=== PATIENT | male | born 1990 | race Two or more races ===

== ENCOUNTER 2020-03-13 17:16 | Inpatient (IN) | payer OTHER ==
[~2020-03-13] VITALS: Ht 165.1 cm; Wt 63.2 kg
[~2020-03-13 17:16] MED LIST: INSU100V14 SQ; INSU100V8 SQ
--- NOTE | 2020-03-13 17:31 | NUR ---
IV PLACED, PT IN GOWN, BP AND SPO2 IN PLACE. PT AOX4. PT BELIEVES HE IS IN DKA, LAST TIME WAS 4-5 YEARS AGO. CONTROLLED ON INSULIN PUMP WITH SUPPLEMENTAL. REPORTS ETOH LAST NOC. HOB TO LEVEL OF COMFORT. AWAITING ORDERS.
[2020-03-13] MEDS ORDERED: ONDANSETRON 2MG/ML, 2ML ONE (17:52)
--- NOTE | 2020-03-13 17:55 | NUR ---
TASK RN: LABS COLLECTED, FLUIDS RUNNING, PT MEDICATED FOR VOMITING WITH ZOFRAN PER DEC. PT PLACED ON ALL MONITORING, TACHY HR, RAPID BREATHING, OTHER VS WNL. CALL LIGHT WITHIN REACH. PT AWARE OF NEED FOR UA, URINAL AT BEDSIDE. PT REQUESTING WATER. THIS RN EXPLAINED TO PT THAT WE NEED TO WAIT UNTIL MEDS TAKE AFFECT AND VOMITING SUBSIDES.
[2020-03-13 17:59] LABS: MEAN CORPUSCULAR HEMOGLOBIN 29.2 pg (27.5-34.5); MEAN CORPUSCULAR HGB CONC 32.7 g/dL (33.2-36.2); MEAN CORPUSCULAR VOLUME 89.5 fL (81-97); PLATELET COUNT 608 x10^3/uL (130-400); RED BLOOD COUNT 5.67 x10^6/uL (4.38-5.82); RED CELL DISTRIBUTION WIDTH 13.5 % (9.4-14.8)
[2020-03-13] MEDS ORDERED: SODIUM CHLORIDE 0.9% 1,000ML IVBOLUS ONE ×3 (18:00→21:30)
[2020-03-13] MEDS ORDERED: ONDANSETRON 2MG/ML, 2ML IVPush ONE (18:00)
[2020-03-13] MEDS ORDERED: SODIUM CHLORIDE FLUSH 10ML SYR IVF ONE (18:00)
[2020-03-13 18:03] LABS: PH, VENOUS 7.076 pH (7.320-7.420)
[2020-03-13 18:04] LABS: ACETONE, SERUM Large (80mg/dL) (Negative)
[2020-03-13 18:11] LABS: ALANINE AMINOTRANSFERASE 35 U/L (12-78); ALBUMIN 3.9 g/dL (3.4-5.0); ANION GAP 29 mmol/L (5-15); CALCIUM 9.3 mg/dL (8.5-10.1); CHLORIDE 90 mmol/L (98-107); CREATININE 2.01 mg/dL (0.7-1.3)
[2020-03-13 18:13] LABS: ALKALINE PHOSPHATASE 143 U/L (45-117); BILIRUBIN,TOTAL 1.1 mg/dL (0.2-1.0); TOTAL PROTEIN 8.5 g/dL (6.4-8.2)
--- NOTE | 2020-03-13 18:15 | NUR ---
RECEIVED REPORT FROM SATURNINO WHIPPLE. PT STILL NAUSEATED. ANOTHER ANTIEMETIC REQUESTED.
[2020-03-13] MEDS ORDERED: METOCLOPRAMIDE 5 MG/ML, 2ML ONE (18:16)
[2020-03-13 18:20] LABS: MD YES
--- NOTE | 2020-03-13 18:20 | NUR ---
DR. SOMMERS AT BEDSIDE.
[2020-03-13 18:24] LABS: MICROSCOPIC AUTO
[2020-03-13] MEDS ORDERED: METOCLOPRAMIDE 5 MG/ML, 2ML IVPush ONE (18:30)
[2020-03-13] MEDS ORDERED: REGULAR INSULIN 100 UNITS in SODIUM CHLORIDE 0.9% 99 ML IV PRN ×2 (18:40→20:17)
--- NOTE | 2020-03-13 18:50 | NUR ---
PT INSTRUCTED PER DR. SOMMERS TO MAKE SURE HIS INSULIN PUMP. FAMILY AND PT MADE SURE INSULIN PUMP WAS OFF.
[2020-03-13 19:00] LABS: BAND#(MANUAL) 3.74 x10^3/uL; BANDS%(MANUAL) 10 % (0-7); LYMPH#(MANUAL) 4.49 x10^3/uL (1-3.4); LYMPHS% (MANUAL) 12 % (22-44); MONOS#(MANUAL) 1.87 x10^3/uL (0.3-2.7); MONOS% (MANUAL) 5 % (2-9); MYELOCYTES# (MANUAL) 0.37 x10^3/uL (0-0); MYELOCYTES% (MANUAL) 1 % (0-0); SEG#(MANUAL) 26.93 x10^3/uL (1.8-6.8); SEGS% (MANUAL) 72 % (42-75)
[2020-03-13 19:02] LABS: <PLATELET ESTIMATE> INCREASED; <PLT MORPHOLOGY> NORMAL PLT MORPH; <RBC MORPHOLOGY> NORMAL
--- NOTE | 2020-03-13 19:24 | NUR ---
INSULIN DRIP STARTED PER MD ORDER. WAITING FOR CCU BED. PT RESTING IN NAD AND VOMITING HAS STOPPED SINCE REGLAN WAS GIVEN.
[2020-03-13] MEDS ORDERED: HUMALOG INSULIN PUMP (19:29)
[2020-03-13] MEDS ORDERED: D5%-0.45NACL+KCL 20MEQ 1,000 ML IV SCH (20:17)
--- NOTE | 2020-03-13 20:25 | NUR ---
DR. TOBAR AT BEDSIDE FOR ADMIT. POC GLUCOSE DONE AND STILL ABOVE 600. STAT BMP ORDREDED PER DR. TOBAR.
--- NOTE | 2020-03-13 20:25 | NUR ---
PT VOIDED A TOTAL OF 900 MLS OF URINE.
[2020-03-13] MEDS ORDERED: LABETALOL 5MG/ML, 20ML IVPush PRN (20:30)
[2020-03-13] MEDS ORDERED: ONDANSETRON 2MG/ML, 2ML IV PRN (20:30)
[2020-03-13] MEDS ORDERED: MORPHINE SULFATE 4 MG/ML, 1ML IVPush PRN (20:30)
[2020-03-13] MEDS ORDERED: ACETAMINOPHEN 325 MG TABLET PO PRN (20:30)
[2020-03-13] MEDS ORDERED: PROMETHAZINE 25 MG/ML, 1ML IM PRN (20:30)
[2020-03-13] MEDS ORDERED: DOCUSATE 100 MG CAPSULE PO PRN (20:30)
[2020-03-13] MEDS ORDERED: PANTOPRAZOLE 40 MG IV ONE (20:55)
[2020-03-13 20:59] LABS: ANION GAP 24 mmol/L (5-15); CALCIUM 8.2 mg/dL (8.5-10.1); CHLORIDE 99 mmol/L (98-107); CREATININE 1.81 mg/dL (0.7-1.3)
[2020-03-13 21:00] LABS: AMPHETAMINE SCREEN, URINE Negative (Negative); BARBITURATE SCREEN, URINE Negative (Negative); BENZODIAZEPINE SCREEN, URINE Negative (Negative); CANNABINOID SCREEN, URINE Negative (Negative); COCAINE SCREEN, URINE Negative (Negative); METHADONE SCREEN, URINE Negative (Negative); OPIATE SCREEN, URINE Negative (Negative)
[2020-03-13] MEDS: PANTOPRAZOLE 40 MG IV IVPush SCH (21:00)
[2020-03-13 21:05] VITALS: BP 158/77
[2020-03-13] MEDS: SODIUM CHLORIDE 0.9% 1,000 ML IV SCH (21:05)
--- NOTE | 2020-03-13 21:13 | NUR ---
RESULT OF CO2 OF 7 AND BS OF [address] TOBAR. LITER BOLUS STARTED PER DR. TOBAR.
[2020-03-14 00:10] LABS: ANION GAP 18 mmol/L (5-15); CALCIUM 7.4 mg/dL (8.5-10.1); CHLORIDE 105 mmol/L (98-107); CREATININE 1.49 mg/dL (0.7-1.3)
[2020-03-14] MEDS: SODIUM CHLORIDE 0.9% 1,000 ML IV SCH (03:30)
[2020-03-14 04:44] LABS: MEAN CORPUSCULAR HEMOGLOBIN 29.1 pg (27.5-34.5); MEAN CORPUSCULAR VOLUME 88.1 fL (81-97); MEAN PLATELET VOLUME 7.2 fL (7.4-10.4); PLATELET COUNT 463 x10^3/uL (130-400); RED CELL DISTRIBUTION WIDTH 13.2 % (9.4-14.8)
[2020-03-14 04:54] LABS: ANION GAP 12 mmol/L (5-15); CALCIUM 7.4 mg/dL (8.5-10.1); CHLORIDE 110 mmol/L (98-107); CREATININE 1.36 mg/dL (0.7-1.3)
[2020-03-14 05:02] LABS: MD YES
[2020-03-14 05:05] LABS: <PLATELET ESTIMATE> INCREASED; <PLT MORPHOLOGY> NORMAL PLT MORPH; <RBC MORPHOLOGY> NORMAL; BAND#(MANUAL) 1.99 x10^3/uL; BANDS%(MANUAL) 7 % (0-7); LYMPH#(MANUAL) 2.84 x10^3/uL (1-3.4); LYMPHS% (MANUAL) 10 % (22-44); METAMYELOCYTES# (MANUAL) 0.28 x10^3/uL (0-0); METAMYELOCYTES% (MANUAL) 1 % (0-1); MONOS#(MANUAL) 1.14 x10^3/uL (0.3-2.7); MONOS% (MANUAL) 4 % (2-9); MYELOCYTES# (MANUAL) 0.28 x10^3/uL (0-0); MYELOCYTES% (MANUAL) 1 % (0-0); SEGS% (MANUAL) 77 % (42-75)
[2020-03-14] MEDS: PANTOPRAZOLE 40 MG IV IVPush SCH (08:44)
[2020-03-14 09:10] LABS: ANION GAP 7 mmol/L (5-15); CALCIUM 7.4 mg/dL (8.5-10.1); CHLORIDE 113 mmol/L (98-107); CREATININE 1.17 mg/dL (0.7-1.3)
[2020-03-14] MEDS ORDERED: DEXTROSE 50%, 50ML SYRINGE IVPush PRN (11:00)
[2020-03-14] MEDS ORDERED: INSULIN LISPRO 100 UNITS/ML, PEN SQ-INSULIN SCH ×2 (11:00)
[2020-03-14] MEDS ORDERED: INSULIN GLARGINE 100 UNITS/ML, PEN SQ-INSULIN SCH ×2 (11:00)
[2020-03-14] MEDS ORDERED: DEXTROSE 4 GM TAB.CHEW PO PRN (11:00)
[2020-03-14] MEDS ORDERED: GLUCAGON 1 MG IM PRN (11:00)
[2020-03-14] MEDS ORDERED: SODIUM CHLORIDE FLUSH 10ML SYR IVF SCH (11:00)
[2020-03-14 12:18] LABS: ANION GAP 7 mmol/L (5-15); CALCIUM 7.4 mg/dL (8.5-10.1); CHLORIDE 112 mmol/L (98-107)
[2020-03-14] MEDS ORDERED: ONDA4TAB7 PO (13:56)
[2020-03-14] MEDS ORDERED: INSU100I13 SQ-INSULIN (13:56)
== END 2020-03-14 15:54 | disposition left against medical advice (07) | DRG 637 ==
LOC: ED 18:37 → EDIP 18:43 → CCU 22:05
PROVIDERS: ADMIT Family Medicine; ATTEND Hospitalist
DX: E10.10 Type 1 diabetes mellitus with ketoacidosis without coma (principal); N17.0 Acute kidney failure with tubular necrosis; K92.0 Hematemesis; D72.825 Bandemia; E86.0 Dehydration; E87.5 Hyperkalemia; H40.9 Unspecified glaucoma; Z96.41 Presence of insulin pump (external) (internal); Z53.29 Procedure and treatment not carried out because of patient's decision for other reasons; Z79.4 Long term (current) use of insulin; Z83.3 Family history of diabetes mellitus
CPT/HCPCS: 36415; 71045; 80048; 80053; 80307; 81001; 82010; 82803; 82962; 83036; 83690; 83735; 84100; 84145; 85025; 87081; 93005; 96361; 96374; 96375; G0378; J1815; J2405; C9113; J2765; J3480; J7030

== ENCOUNTER 2020-06-28 09:04 | Emergency (ER) | payer SELFPAY ==
[~2020-06-28] VITALS: Ht 165.1 cm; Wt 71.4 kg
[~2020-06-28 09:04] MED LIST changes: +HUMALOG INSULIN PUMP; +INSU100I13 SQ-INSULIN; +ONDA4TAB7 PO
--- NOTE | 2020-06-28 09:57 | NUR ---
[employer] TECHNICAL: PT IN US. WILL GO TO 22 WHEN COMPLETED
--- NOTE | 2020-06-28 10:04 | NUR ---
pt walked back to room by US tech. as
--- NOTE | 2020-06-28 10:23 | NUR ---
pt to ed from home c/o bilat swelling in lower extrem R>L. neg workup at [facility] for same. 2+dps. trace edema lowers nonpitting. sts +MANLEY when legs swollen as well as worse GERD. denies cp. lungs ctab. heart sounds reg. a&ox4 gcs 15 us complete lab pending call [facility] in reach ekg in prog. as
[2020-06-28 10:25] LABS: BASOPHILS # (AUTO) 0.04 x10^3/uL (0-0.1); BASOPHILS % (AUTO) 1 % (0-1); EOSINOPHILS # (AUTO) 0.02 x10^3/uL (0-0.4); EOSINOPHILS % (AUTO) 0 % (1-7); LYMPHOCYTES % (AUTO) 31 % (22-44); MD NO; MEAN CORPUSCULAR HEMOGLOBIN 31.5 pg (27.5-34.5); MEAN CORPUSCULAR HGB CONC 33.3 g/dL (33.2-36.2); MEAN CORPUSCULAR VOLUME 94.4 fL (81-97); MONOCYTES # (AUTO) 0.88 x10^3/uL (0.2-0.8); MONOCYTES % (AUTO) 11 % (2-9); NEUTROPHILS # (AUTO) 4.77 x10^3/uL (1.8-6.8); NEUTROPHILS % (AUTO) 58 % (42-75); PLATELET COUNT 480 x10^3/uL (130-400); RED BLOOD COUNT 4.27 x10^6/uL (4.38-5.82); RED CELL DISTRIBUTION WIDTH 14.3 % (9.4-14.8)
[2020-06-28 10:37] LABS: ALBUMIN 2.2 g/dL (3.4-5.0); ANION GAP 20 mmol/L (5-15); CALCIUM 8.3 mg/dL (8.5-10.1); CHLORIDE 103 mmol/L (98-107)
[2020-06-28 10:43] LABS: ALANINE AMINOTRANSFERASE 125 U/L (12-78); ALKALINE PHOSPHATASE 219 U/L (45-117); BILIRUBIN,TOTAL 0.5 mg/dL (0.2-1.0); CREATININE 1.33 mg/dL (0.7-1.3); TOTAL PROTEIN 5.9 g/dL (6.4-8.2)
[2020-06-28] MEDS ORDERED: SODIUM CHLORIDE 0.9% 1,000ML IVBOLUS ONE (11:30)
--- NOTE | 2020-06-28 11:36 | NUR ---
DISCUSSED LAB WORK [facility]. PIV EST LABS DRAWN BY RN AND SENT BY NEW ACCOUNTS REPRESENTATIVE, FLUIDS PER GALINA. OLIVIA. CALL YOBANI.
[2020-06-28 11:51] LABS: PH, VENOUS 7.314 pH (7.320-7.420)
[2020-06-28 12:15] LABS: ACETONE, SERUM Large (80mg/dL) (Negative)
[2020-06-28 12:25] VITALS: BP 105/81
--- NOTE | 2020-06-28 12:25 | NUR ---
ivf infused hiv neg vss nad. as
== END 2020-06-28 13:06 | disposition home or self-care (01) ==
LOC: ED 10:34
DX: R60.0 Localized edema (principal); E88.09 Other disorders of plasma-protein metabolism, not elsewhere classified; E86.0 Dehydration; K75.9 Inflammatory liver disease, unspecified; R00.0 Tachycardia, unspecified; M79.661 Pain in right lower leg; E11.9 Type 2 diabetes mellitus without complications
CPT/HCPCS: 36415; 71045; 80053; 80074; 82010; 82803; 83880; 85025; 87806; 93005; 93971; 96360; 99285; J7030; G0475

== ENCOUNTER 2020-07-19 01:24 | Emergency (ER) | payer SELFPAY ==
[2020-07-19 01:28] VITALS: BP 145/87
== END 2020-07-19 02:32 | disposition home or self-care (01) ==
LOC: ED 01:54
DX: K64.4 Residual hemorrhoidal skin tags (principal); R60.0 Localized edema; E88.09 Other disorders of plasma-protein metabolism, not elsewhere classified; E11.9 Type 2 diabetes mellitus without complications
CPT/HCPCS: 99282

== ENCOUNTER 2020-08-31 11:36 | Emergency (ER) | payer OTHER ==
[~2020-08-31] VITALS: Ht 165.1 cm; Wt 67.0 kg
[2020-08-31 11:50] VITALS: BP 128/74
--- NOTE | 2020-08-31 12:01 | NUR ---
PT HERE WITH . STATES TESTED POSITIVE FOR TB AND WANTS TO GET TESTED. HX OF DM1.
[2020-08-31] MEDS ORDERED: INSU100V8 SQ (12:02)
--- NOTE | 2020-08-31 12:18 | NUR ---
PA AT BEDSIDE EVALUATING PT.
--- NOTE | 2020-08-31 12:26 | NUR ---
REPORT TO SARABJIT KAPOOR TO ASSUME PRIMARY CARE.
== END 2020-08-31 14:17 | disposition home or self-care (01) ==
LOC: ED 13:40
DX: A15.9 Respiratory tuberculosis unspecified (principal); R06.02 Shortness of breath; E11.9 Type 2 diabetes mellitus without complications; Z88.0 Allergy status to penicillin; Z00.00 Encounter for general adult medical examination without abnormal findings
CPT/HCPCS: 36415; 71045; 86480; 99284

== ENCOUNTER 2020-11-14 15:32 | Emergency (ER) | payer OTHER ==
[~2020-11-14] VITALS: Ht 165.1 cm; Wt 68.8 kg
[2020-11-14] MEDS ORDERED: ONDANSETRON 2MG/ML, 2ML ONE (15:52)
[2020-11-14] MEDS ORDERED: ONDANSETRON 2MG/ML, 2ML IVPush ONE (16:00)
[2020-11-14] MEDS ORDERED: SODIUM CHLORIDE 0.9% 1,000ML IVBOLUS ONE ×2 (16:00→19:30)
--- NOTE | 2020-11-14 16:10 | NUR ---
PROVIDER AT BEDSIDE FOR ASSESSMENT AND PLAN OF CARE
--- NOTE | 2020-11-14 16:11 | NUR ---
PT COMES IN C/O N/V X3 DAYS. PT ALSO C/O FREQUENT URINATION PT STATES HE HAS TYPE 1 DM. LAST BLOOD SUGAR PER PT 250. IV PLACED. ORDERED MEDICATIONS ADMINISTERED. MONITORS CONNECTED. CALL LIGHT W/IN REACH.
[2020-11-14 16:18] LABS: PH, VENOUS 7.397 pH (7.320-7.420)
[2020-11-14 16:28] LABS: BASOPHILS % (AUTO) 1 % (0-1); EOSINOPHILS % (AUTO) 1 % (1-7); LYMPHOCYTES % (AUTO) 32 % (22-44); MEAN CORPUSCULAR HGB CONC 33.6 g/dL (33.2-36.2); MEAN PLATELET VOLUME 6.7 fL (7.4-10.4); MONOCYTES % (AUTO) 8 % (2-9); NEUTROPHILS % (AUTO) 58 % (42-75); PLATELET COUNT 600 x10^3/uL (130-400); RED BLOOD COUNT 4.58 x10^6/uL (4.38-5.82); RED CELL DISTRIBUTION WIDTH 14.5 % (9.4-14.8)
[2020-11-14 16:33] LABS: MD NO
[2020-11-14 16:38] LABS: ALANINE AMINOTRANSFERASE 117 U/L (12-78); ALBUMIN 2.4 g/dL (3.4-5.0); ANION GAP 20 mmol/L (5-15); CALCIUM 8.4 mg/dL (8.5-10.1); CHLORIDE 95 mmol/L (98-107); CREATININE 1.24 mg/dL (0.7-1.3)
[2020-11-14 16:40] LABS: ALKALINE PHOSPHATASE 258 U/L (45-117); BILIRUBIN,TOTAL 0.7 mg/dL (0.2-1.0)
--- NOTE | 2020-11-14 16:42 | NUR ---
UA COLLECTED. WARM BLANKETS PROVIDED. PT STATES MINIMAL NAUSEA AT THIS TIME. RESTING ON GURNEY. VSS. NAD. WILL CONTINUE TO MONITOR
[2020-11-14 16:54] LABS: MICROSCOPIC AUTO
[2020-11-14 17:16] LABS: ACETONE, SERUM Large (80mg/dL) (Negative)
--- NOTE | 2020-11-14 17:50 | NUR ---
MD AT BEDSIDE. ORDERED MEDICATIONS INFUSING. PT RESTING ON GURNEY. VSS. NAD. CALL LIGHT W/IN REACH
--- NOTE | 2020-11-14 19:32 | NUR ---
PT RESTING ON GURNEY. FSBS COMPLETE. 2ND BAG OF FLUID COMPLETE. VSS. NAD. CALL LIGHT W/IN REACH
--- NOTE | 2020-11-14 19:38 | NUR ---
PROVIDER AT BEDSIDE TO DISCUSS PLAN OF CARE
--- NOTE | 2020-11-14 19:44 | NUR ---
ORDERED MEDICATIONS INFUSING. HUMALOG ORDERED FROM PHARMACY. FOOD ORDERED
[2020-11-14] MEDS ORDERED: INSULIN LISPRO 100 UNIT/ML, 3ML VIAL SQ-INSULIN ONE (20:00)
[2020-11-14] MEDS ORDERED: INSULIN LISPRO 100 UNITS/ML, PEN SQ-INSULIN ONE (20:00)
[2020-11-14] MEDS ORDERED: INSULIN LISPRO 100 UNITS/ML, PEN ONE (20:12)
--- NOTE | 2020-11-14 21:12 | NUR ---
LAB AT BEDSIDE FOR REPEAT BMP
--- NOTE | 2020-11-14 21:19 | NUR ---
PT RESTING ON [employer]. FOOD PROVIDED. VSS. NAD. AWAITING LAB RESULTS. CALL LIGHT W/IN REACH
[2020-11-14 21:31] LABS: ANION GAP 18 mmol/L (5-15); CHLORIDE 105 mmol/L (98-107)
[2020-11-14 21:32] LABS: CREATININE 1.03 mg/dL (0.7-1.3)
--- NOTE | 2020-11-14 21:56 | NUR ---
REPORT GIVEN TO VALENTINA
[2020-11-14 22:05] VITALS: BP 106/64
== END 2020-11-14 22:17 | disposition home or self-care (01) ==
LOC: ED 16:23
DX: E10.65 Type 1 diabetes mellitus with hyperglycemia (principal); E86.0 Dehydration; I10 Essential (primary) hypertension; R11.2 Nausea with vomiting, unspecified; Z96.41 Presence of insulin pump (external) (internal)
CPT/HCPCS: 36415; 80048; 80053; 81001; 82010; 82803; 82962; 83880; 85025; 96361; 96374; 99285; J1815; J2405; J7030

== ENCOUNTER 2021-01-15 13:47 | Inpatient (IN) | payer SELFPAY ==
[~2021-01-15] VITALS: Ht 165.1 cm; Wt 72.0 kg
[2021-01-15] MEDS ORDERED: FAMOTIDINE 20 MG/2 ML ONE (14:17)
[2021-01-15] MEDS ORDERED: ONDANSETRON 2MG/ML, 2ML ONE (14:17)
--- NOTE | 2021-01-15 14:25 | NUR ---
PT BROUGHT BACK TO ROOM FROM TRIAGE. PT CO VOMITING X5 DAYS. PT STATED THAT HE IS UNABLE TO KEEP ANY FOOD/LIQUID DOWN. PT HAS HX OF DM1, BUT STATED BS HAS BEEN WNL. PT STATED THAT TODAY, THERE WAS SOME BLOOD IN HIS VOMIT.
[2021-01-15] MEDS ORDERED: SODIUM CHLORIDE 0.9% 1,000ML IVBOLUS ONE ×2 (14:30→16:00)
[2021-01-15] MEDS ORDERED: FAMOTIDINE 20 MG/2 ML IVPush ONE (14:30)
[2021-01-15] MEDS ORDERED: SODIUM CHLORIDE FLUSH 10ML SYR IVF ONE (14:30)
[2021-01-15] MEDS ORDERED: ONDANSETRON 2MG/ML, 2ML IVPush ONE (14:30)
[2021-01-15 14:39] LABS: ALBUMIN 2.1 g/dL (3.4-5.0); ANION GAP 22 mmol/L (5-15); CALCIUM 7.7 mg/dL (8.5-10.1); CHLORIDE 93 mmol/L (98-107)
[2021-01-15 14:42] LABS: ALANINE AMINOTRANSFERASE 71 U/L (12-78); ALKALINE PHOSPHATASE 189 U/L (45-117); BILIRUBIN,TOTAL 0.7 mg/dL (0.2-1.0); CREATININE 0.96 mg/dL (0.7-1.3); TOTAL PROTEIN 6.3 g/dL (6.4-8.2)
--- NOTE | 2021-01-15 14:50 | NUR ---
PT VOMITED MULTIPLE TIMES. VOMIT BLOOD TINGED. ZOFRAN GIVEN PER MAR
[2021-01-15 14:52] LABS: BASOPHILS % (AUTO) 1 % (0-1); EOSINOPHILS % (AUTO) 0 % (1-7); LYMPHOCYTES % (AUTO) 26 % (22-44); MEAN CORPUSCULAR HEMOGLOBIN 29.7 pg (27.5-34.5); MEAN CORPUSCULAR HGB CONC 32.2 g/dL (33.2-36.2); MEAN PLATELET VOLUME 6.9 fL (7.4-10.4); MONOCYTES % (AUTO) 7 % (2-9); NEUTROPHILS % (AUTO) 67 % (42-75); PLATELET COUNT 633 x10^3/uL (130-400); RED BLOOD COUNT 4.46 x10^6/uL (4.38-5.82); RED CELL DISTRIBUTION WIDTH 14.2 % (9.4-14.8)
[2021-01-15 14:54] LABS: MD NO
[2021-01-15 15:13] LABS: MICROSCOPIC AUTO
[2021-01-15 15:15] LABS: ACETONE, SERUM Large (80mg/dL) (Negative)
[2021-01-15] MEDS ORDERED: INSULIN SINGLE DOSE, ER ONE ×2 (15:58→17:23)
[2021-01-15] MEDS ORDERED: INSULIN REGULAR 100 UNITS/ML, 3ML VIAL IVPush ONE ×2 (16:00→16:30)
--- NOTE | 2021-01-15 16:00 | NUR ---
PT RESTING COMFORTABLY
[2021-01-15] MEDS ORDERED: ACETAMINOPHEN 325 MG TABLET PO PRN (16:30)
[2021-01-15] MEDS ORDERED: hydrALAzine 20 MG/ML, 1ML IVPush PRN (16:30)
[2021-01-15] MEDS ORDERED: ENOXAPARIN 40 MG/0.4 ML SQ SCH (16:30)
[2021-01-15] MEDS ORDERED: BISACODYL 10 MG SUPP PR PRN (16:30)
[2021-01-15] MEDS ORDERED: HYDROcodone/APAP 5/325 TABLET PO PRN (16:30)
[2021-01-15] MEDS ORDERED: GUAIFENESIN/DM 200-20MG, 10ML UDC PO PRN (16:30)
[2021-01-15] MEDS ORDERED: ONDANSETRON 2MG/ML, 2ML IVPush PRN (16:30)
[2021-01-15] MEDS ORDERED: POLYETHYLENE GLYCOL 17 GM PACKET PO PRN (16:30)
--- NOTE | 2021-01-15 16:39 | NUR ---
PT IN BED WTIH NO SIGNS OR SYMPTOMS OF ACUTE DISTRESS NOTED RESPIRATIONS EVEN AND UNLABORED PT DENIES PAIN OR NEED AT THIS TIME. PT ABLE TO CONSUME 1 CUP OF WATER WITHOUT PAIN OR VOMITING. IVF INFUSING WELL AT LEFT AC. PT AWARE AND AGREEABLE WITH PLAN OF CARE, CALL LIGHT WITHIN REACH, LIGHTS LOW IN ROOM FOR COMFORT
--- NOTE | 2021-01-15 17:01 | NUR ---
400ML OUT TO URINAL.
--- NOTE | 2021-01-15 17:35 | NUR ---
REPORT GIVEN TO SARABJIT FORREST.
[2021-01-15 18:25] VITALS: BP 126/84
[2021-01-15 18:27] LABS: PH, VENOUS 7.281 pH (7.320-7.420)
[2021-01-15] MEDS: LACTATED RINGERS 1,000 ML IV SCH ×2 (18:31→23:10)
[2021-01-15] MEDS: INSULIN LISPRO 100 UNITS/ML, PEN SQ-INSULIN SCH ×2 (20:06→21:00)
[2021-01-15] MEDS: INSULIN GLARGINE 100 UNITS/ML, PEN SQ-INSULIN SCH (20:07)
[2021-01-15 20:10] VITALS: BP 109/66
[2021-01-15] MEDS ORDERED: MELATONIN 5 MG TABLET PO PRN (21:00)
[2021-01-16] MEDS: LACTATED RINGERS 1,000 ML IV SCH (01:23)
[2021-01-16 01:24] VITALS: BP 114/75
[2021-01-16 02:20] VITALS: BP 113/69
[2021-01-16 02:29] LABS: ANION GAP 10 mmol/L (5-15); CHLORIDE 104 mmol/L (98-107); CREATININE 0.98 mg/dL (0.7-1.3)
[2021-01-16 05:02] LABS: BASOPHILS % (AUTO) 1 % (0-1); EOSINOPHILS % (AUTO) 1 % (1-7); LYMPHOCYTES % (AUTO) 35 % (22-44); MEAN CORPUSCULAR HEMOGLOBIN 29.7 pg (27.5-34.5); MEAN CORPUSCULAR HGB CONC 33.1 g/dL (33.2-36.2); MONOCYTES % (AUTO) 7 % (2-9); NEUTROPHILS % (AUTO) 57 % (42-75); PLATELET COUNT 514 x10^3/uL (130-400); RED BLOOD COUNT 3.86 x10^6/uL (4.38-5.82); RED CELL DISTRIBUTION WIDTH 13.2 % (9.4-14.8)
[2021-01-16 05:12] LABS: ANION GAP 9 mmol/L (5-15); CALCIUM 7.2 mg/dL (8.5-10.1); CHLORIDE 104 mmol/L (98-107); MD NO
[2021-01-16 05:13] LABS: CREATININE 1.04 mg/dL (0.7-1.3)
[2021-01-16 07:16] VITALS: BP 111/72
[2021-01-16] MEDS ORDERED: MAGNESIUM SULFATE PMX 2GM/50ML 50 ML IV ONE (08:00)
[2021-01-16] MEDS ORDERED: POTASSIUM CHLORIDE 20 MEQ TAB.ER.PRT PO SCH (08:00)
[2021-01-16] MEDS: INSULIN LISPRO 100 UNITS/ML, PEN SQ-INSULIN SCH ×2 (08:53→12:19)
[2021-01-16] MEDS ORDERED: FAMOTIDINE 20 MG TABLET PO SCH (09:00)
[2021-01-16] MEDS: INSULIN GLARGINE 100 UNITS/ML, PEN SQ-INSULIN SCH (09:45)
[2021-01-16 09:50] LABS: ANION GAP 6 mmol/L (5-15); CALCIUM 7.1 mg/dL (8.5-10.1); CHLORIDE 103 mmol/L (98-107); CREATININE 1.01 mg/dL (0.7-1.3)
[2021-01-16 12:49] LABS: ANION GAP 8 mmol/L (5-15); CALCIUM 7.3 mg/dL (8.5-10.1); CHLORIDE 102 mmol/L (98-107); CREATININE 1.14 mg/dL (0.7-1.3)
[2021-01-16 12:54] VITALS: BP 123/86
[2021-01-16] MEDS ORDERED: INSU100I11 SQ-INSULIN (13:42)
== END 2021-01-16 14:54 | disposition home or self-care (01) | DRG 637 ==
LOC: ED 15:36 → EDIP 16:17 → 4EST 18:02 → DCLOUNGE 01-16 14:36
PROVIDERS: ADMIT Hospitalist; ATTEND Hospitalist
DX: E10.10 Type 1 diabetes mellitus with ketoacidosis without coma (principal); K22.6 Gastro-esophageal laceration-hemorrhage syndrome; I10 Essential (primary) hypertension; K29.70 Gastritis, unspecified, without bleeding; E86.0 Dehydration; Z88.1 Allergy status to other antibiotic agents; Z88.0 Allergy status to penicillin
CPT/HCPCS: 36415; 74022; 80048; 80053; 81001; 82010; 82803; 82962; 83036; 83605; 83690; 83735; 84100; 84443; 85025; G0378; J1650; J1815; J2405; J3475; J7030; J7120